=== PATIENT | male | born 1940 | race Caucasian/White ===

== ENCOUNTER → 2017-05-19 | Outpatient (CLI) | payer MEDICARE, OTHER | END | disposition home or self-care (01) | LOC: RAD 11:25 | DX: I70.90 Unspecified atherosclerosis (principal); R05 Cough | CPT/HCPCS: 71046 ==

== ENCOUNTER 2018-07-06 12:29 | Emergency (ER) | payer MEDICARE, OTHER ==
[2018-07-06 13:13] LABS: ADD MAN DIFF? NO
[2018-07-06 13:18] LABS: BASOPHILS % 0.4 % (0.0-2.0); EOSINOPHILS % 0.3 % (0.0-7.0); HEMATOCRIT 48.9 % (42.0-52.0); HEMOGLOBIN 15.8 g/dl (14.0-18.0); LYMPHOCYTES % 17.9 % (15.0-51.0); MEAN CORPUSCULAR HEMOGLOBIN 29.8 pg (29.0-33.0); MEAN CORPUSCULAR HGB CONC 32.3 g/dl (32.0-37.0); MEAN CORPUSCULAR VOLUME 92.3 fl (82.0-101.0); MEAN PLATELET VOLUME 11.7 fl (7.4-10.4); MONOCYTE # 0.9 10^3/ul (0.3-0.9); MONOCYTES % 7.8 % (0.0-11.0); NEUTROPHILS % 73.1 % (39.0-77.0); PLATELET COUNT 215 10^3/UL (140-415); RED CELL DISTRIBUTION WIDTH 13.8 % (11.5-14.5)
[2018-07-06] MEDS: MECLIZINE 12.5 MG TAB PO (13:29)
[2018-07-06 13:36] LABS: ANION GAP 13 (5-13); BLOOD UREA NITROGEN 28 mg/dl (7-20); CARBON DIOXIDE 28 mmol/L (21-31); CHLORIDE 99 mmol/L (97-110); GLUCOSE 142 mg/dl (70-220); SODIUM 140 mmol/L (135-144)
[2018-07-06 13:42] LABS: INR 0.91; PROTIME 12.4 Sec (11.9-14.9)
[2018-07-06 13:43] LABS: PARTIAL THROMBOPLASTIN TIME 23.8 Sec (23.0-35.0)
[2018-07-06 13:47] LABS: TROPONIN-I < 0.012 ng/ml (0.000-0.120)
== END 2018-07-06 16:18 | disposition home or self-care (01) ==
LOC: E/R 12:29
DX: R42 Dizziness and giddiness (principal); I25.10 Atherosclerotic heart disease of native coronary artery without angina pectoris; E11.9 Type 2 diabetes mellitus without complications; Z79.82 Long term (current) use of aspirin; Z79.01 Long term (current) use of anticoagulants; Z79.4 Long term (current) use of insulin; Z98.61 Coronary angioplasty status; Z87.891 Personal history of nicotine dependence
CPT/HCPCS: 36415; 70450; 80048; 84484; 85025; 85610; 85730; 93005; 99285-25